=== PATIENT | male | born 1980 | race African-American/Black ===

== ENCOUNTER 2017-07-17 19:58 | Emergency (ER) | payer OTHER ==
[~2017-07-17] VITALS: Ht 188 cm; Wt 92.2 kg
[2017-07-17 20:05] VITALS: TEMP 37; Ht 188 cm; Wt 92.2 kg
[2017-07-17] MEDS ORDERED: LIDO/EPINEPHRINE/SOD BICARB 20 ML VIAL INFIL ONE (20:17)
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
[2017-07-17 21:21] VITALS: BP 160/101; PULSE 96; O2SAT 98
== END 2017-07-17 21:22 ==
LOC: C.EDB 20:00 → C.EDA 21:22
DX: S01.81XA Laceration without foreign body of other part of head, initial encounter (principal); W45.8XXA Other foreign body or object entering through skin, initial encounter; Y92.149 Unspecified place in prison as the place of occurrence of the external cause